=== PATIENT | male | born 1980 | race Caucasian/White ===

== ENCOUNTER 2020-03-27 17:53 | Emergency (ER) | payer OTHER ==
[~2020-03-27] VITALS: Ht 180.3 cm; Wt 74.4 kg
--- NOTE | 2020-03-27 18:05 | NUR ---
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 ON ROOM AIR, BREATHING EVENLY AND UNLABORED. CONNECTED TO THE MONITOR AND PULSE OX. KEPT COMFORTABLE, WILL CONTINUE TO MONITOR ACCORDINGLY.
[2020-03-27] MEDS ORDERED: NALOXONE HCL 0.4 MG/ML AMPUL ONE (18:17)
[2020-03-27] MEDS ORDERED: NALOXONE HCL 0.4 MG/ML AMPUL IV ONE (18:30)
--- NOTE | 2020-03-27 18:30 | NUR ---
patient refused felton MD at bedside and aware. Per patient "i just want water and i wan't it in a natural way".
--- NOTE | 2020-03-27 19:13 | NUR ---
report given to Jhonatan VALENZUELA for anna.
--- NOTE | 2020-03-27 20:01 | NUR ---
CAROLYN (FRIEND) CONTACT INFORMATION: [phone]
--- NOTE | 2020-03-27 20:17 | NUR ---
PATIENT AMBULATED TO THE RESTROOM WITH A STEADY GAIT.
--- NOTE | 2020-03-27 20:19 | NUR ---
PATIENT STATES THAT A FRIEND WILL COME PICK HIM UP.
[2020-03-27 21:26] VITALS: BP 114/74
--- NOTE | 2020-03-27 21:26 | NUR ---
Patient discharged to home in stable condition. Written and verbal after care instructions given. Patient verbalizes understanding of instruction.
--- NOTE | 2020-03-27 21:26 | NUR ---
IV removed. Catheter intact and site benign. Pressure and 4x4 applied to site. No bleeding noted.
== END 2020-03-27 21:27 | disposition home or self-care (01) ==
LOC: ER 17:55
DX: R00.0 Tachycardia, unspecified (principal); T50.995A Adverse effect of other drugs, medicaments and biological substances, initial encounter; Y92.89 Other specified places as the place of occurrence of the external cause
CPT/HCPCS: 99283; J2310